=== PATIENT | female | born 2000 | race Caucasian/White ===

== ENCOUNTER 2022-08-11 07:01 | Day surgery (SDC) | payer OTHER ==
[~2022-08-11] VITALS: Ht 160 cm; Wt 56.7 kg
[2022-08-11] MEDS ORDERED: ACETAMINOPHEN I.V. 1000 MG 100 ML IV ONE (08:18)
[2022-08-11] MEDS ORDERED: ONDANSETRON HCL 4 MG/2 ML VIAL ONE ×2 (08:30→11:54)
[2022-08-11] MEDS ORDERED: FUROSEMIDE 40 MG/4 ML VIAL ONE (08:30)
[2022-08-11] MEDS ORDERED: ROPIVACAINE HCL/PF 0.2% EPIDURAL 200 ML PLAST..BAG ONE (08:30)
[2022-08-11] MEDS ORDERED: KETOROLAC TROMETHAMINE 30 MG VIAL ONE (08:30)
[2022-08-11] MEDS ORDERED: SUGAMMADEX SODIUM 200 MG/2 ML VIAL IV ONE (08:30)
[2022-08-11] MEDS ORDERED: DESFLURANE 15 MIN GAS INH ONE (08:30)
[2022-08-11] MEDS ORDERED: NS IRRIG SOLN 1000 ML IR ONE (08:30)
[2022-08-11] MEDS ORDERED: PROPOFOL 200MG/ 20ML VIAL (DIPRIVAN) IV ONE (08:30)
[2022-08-11] MEDS ORDERED: LIDOCAINE/EPI MPF 1%1:200000 30 ML VIAL ONE (08:30)
[2022-08-11] MEDS ORDERED: ROCURONIUM BROMIDE 10 MG/ML (ZEMURON) ONE (08:30)
[2022-08-11] MEDS ORDERED: DEXAMETHASONE SOD PHOSPHATE 4 MG/ML VIAL ONE (08:30)
[2022-08-11] MEDS ORDERED: WATER FOR IRRIGATION,STERILE 1,000 ML IRRIG.SOLN IR ONE (08:30)
[2022-08-11] MEDS ORDERED: BUPIVACAINE /PF 0.25% 30 ML VIAL INJ ONE (08:30)
[2022-08-11] MEDS ORDERED: MIDAZOLAM HCL 2 MG/2 ML VIAL (VERSED) ONE (08:30)
[2022-08-11] MEDS ORDERED: ceFAZolin SODIUM 2 GM VIAL ONE (08:30)
[2022-08-11] MEDS ORDERED: fentaNYL CITRATE/PF 100 MCG/2 ML AMP ONE (08:30)
[2022-08-11] MEDS ORDERED: LR 1,000 ML IV.SOLN IV ONE ×2 (08:30)
[2022-08-11] MEDS ORDERED: hydrALAZINE HCL 20 MG/ML VIAL IVP PRN (09:30)
[2022-08-11] MEDS ORDERED: HYDROmorphone 1 MG/ML INJ. CARTRIDGE IVP PRN ×2 (09:30)
[2022-08-11] MEDS ORDERED: LR 1,000 ML IV SCH (09:30)
[2022-08-11] MEDS ORDERED: LABETALOL 100 MG/ 20ML VIAL IVP PRN (09:30)
[2022-08-11] MEDS ORDERED: MIDAZOLAM HCL 2 MG/2 ML VIAL (VERSED) IVP PRN (09:30)
[2022-08-11] MEDS ORDERED: METOCLOPRAMIDE HCL 10 MG/2 ML VIAL IVP PRN (09:30)
[2022-08-11] MEDS ORDERED: MEPERIDINE HCL/PF 25 MG/ML DISP.SYRIN IVP PRN (09:30)
[2022-08-11] MEDS ORDERED: ONDANSETRON HCL 4 MG/2 ML VIAL IVP PRN (11:00)
[2022-08-11] MEDS ORDERED: HYDROcodone/ACETAMIN 5-325 MG TAB (NORCO/ VICODIN) PO PRN (11:00)
[2022-08-11] MEDS ORDERED: OXYCODONE/ACETAMINOPHEN 5-325 TABLET PO PRN ×2 (11:00)
[2022-08-11 16:24] VITALS: BP_SYST 128
== END 2022-08-11 14:10 | disposition home or self-care (01) ==
LOC: SDS 07:01 → SMU 07:02 → SDS 14:10
PROVIDERS: ATTEND Specialist
DX: N93.8 Other specified abnormal uterine and vaginal bleeding (principal); N94.6 Dysmenorrhea, unspecified; N92.6 Irregular menstruation, unspecified; F64.0 Transsexualism; Z79.899 Other long term (current) drug therapy
CPT/HCPCS: 87081; 58552; 64488; 88305; 88307; J3490 ×2; J1100; J1940; J1885; J3465; J2405; J2704; J3010; J7120; C1727; J0131; S2900; E0190